=== PATIENT | female | born 1960 | race Caucasian/White ===

== ENCOUNTER 2025-06-27 22:25 | Inpatient (IN) | payer OTHER, SELFPAY ==
[2025-06-27] MEDS ORDERED: Nitroglycerin 2% Ointment 1 INCH/1 GM Packet ONE (22:38)
[2025-06-27] MEDS ORDERED: Acetaminophen 325 MG (10.15 ML) UDCUP ONE (23:10)
[2025-06-27] MEDS ORDERED: LevoFLOXacin 750 mg/D5W 150 ml Premix Bag ONE (23:12)
[2025-06-27] MEDS ORDERED: Cefepime 2 GM VIAL ONE (23:56)
[2025-06-28 08:57] VITALS: BMI 17.5
[2025-06-28] MEDS ORDERED: Melatonin 3 MG TAB PO PRN (09:21)
[2025-06-28] MEDS: Acetaminophen 325 MG TAB PO PRN (10:43)
[2025-06-28 10:57] LABS: Hematocrit 37.6 % (36.0-47.0); Hemoglobin 11.5 g/dL (12.0-16.0); Red Blood Cell (RBC) Count 4.56 mill/uL (4.20-5.40); White Blood Cell (WBC) Count 23.16 10x3/uL (4.8-10.8)
[2025-06-28 10:58] LABS: #Basophils 0.08 10x3/uL (0.0-0.2); #Eosinophils 0.34 10x3/uL (0.0-0.7); #Monocytes 1.12 10x3/uL (0.11-0.59); #Neutrophils 15.59 10x3/uL (1.40-6.50); %Basophils 0.3 % (0.0-1.0); %Eosinophils 1.5 % (0.0-10.0); %Lymphocytes 25.4 % (21.0-51.0); %Monocytes 4.8 % (0.0-10.0); %Neutrophils 67.4 % (42.0-75.0); Mean Corpuscular Hemoglobin 25.2 pg (27.0-31.0); Mean Corpuscular Volume 82.5 fL (78.0-98.0); Platelet Count 776 10x3/uL (130-400)
[2025-06-28 12:14] LABS: Magnesium 1.8 mg/dL (1.6-2.6)
[2025-06-28 13:11] LABS: ALT (SGPT) 8 U/L (Less than 34); AST (SGOT) 22 U/L (11-34); Albumin 3.9 g/dL (3.1-4.5); Alkaline Phosphatase 124 U/L (40-110); Anion Gap 20 mmol/L (10-20); BUN (Urea Nitrogen) 18 mg/dL (9.8-20.1); Bilirubin, Total 0.4 mg/dL (0.3-1.2); Calc. Creatinine Clearance 34 mL/min (70-130); Calcium 9.9 mg/dL (7.8-10.44); Carbon Dioxide 17 mmol/L (23-31); Chloride 109 mmol/L (98-107); Globulin 4.3 g/dL (2.4-3.5); Glucose 253 mg/dL (80-115); Potassium 3.3 mmol/L (3.5-5.1); Sodium 143 mmol/L (136-145)
[2025-06-28] MEDS: HYDROcodone/Acetaminophen 5/325 mg Tablet PO PRN (13:25)
[2025-06-28] MEDS: Vancomycin 1 GM in Premix 1 BAG IVPB SCH (14:43)
[2025-06-28] MEDS: Magnesium Sulfate/D5W 1 GM in Premix 1 BAG IVPB SCH (14:45)
[2025-06-28] MEDS ORDERED: hydrALAZINE 20 MG/ML VIAL SLOW IVP PRN (16:51)
[2025-06-28] MEDS: hydrALAZINE 20 MG/ML VIAL SLOW IVP PRN (17:15)
[2025-06-28] MEDS: Senokot 8.6 MG TAB PO SCH (20:01)
[2025-06-28] MEDS: Gabapentin 300 MG CAP PO SCH (20:02)
[2025-06-28] MEDS: QUEtiapine 25 MG TAB PO SCH (20:02)
[2025-06-28] MEDS: Mometasone 100 MCG/Formoterol 5 MCG 120 PUFF INHALER INH SCH (20:02)
[2025-06-28] MEDS: Sertraline 25 MG TAB PO SCH (20:02)
[2025-06-29 05:50] LABS: #Basophils 0.04 10x3/uL (0.0-0.2); #Eosinophils 0.51 10x3/uL (0.0-0.7); #Monocytes 0.61 10x3/uL (0.11-0.59); #Neutrophils 5.64 10x3/uL (1.40-6.50); %Basophils 0.5 % (0.0-1.0); %Eosinophils 5.9 % (0.0-10.0); %Lymphocytes 20.7 % (21.0-51.0); %Monocytes 7.1 % (0.0-10.0); %Neutrophils 65.6 % (42.0-75.0); Hematocrit 30.2 % (36.0-47.0); Hemoglobin 9.0 g/dL (12.0-16.0); Mean Corpuscular Hemoglobin 24.7 pg (27.0-31.0); Mean Corpuscular Volume 82.7 fL (78.0-98.0); Platelet Count 377 10x3/uL (130-400); Red Blood Cell (RBC) Count 3.65 mill/uL (4.20-5.40); White Blood Cell (WBC) Count 8.60 10x3/uL (4.8-10.8)
[2025-06-29 06:04] LABS: Vancomycin, Random 11.6 ug/mL (See Comment)
[2025-06-29 06:13] LABS: ALT (SGPT) Less than 7 U/L (Less than 34); AST (SGOT) 15 U/L (11-34); Albumin 3.0 g/dL (3.1-4.5); Alkaline Phosphatase 87 U/L (40-110); Anion Gap 12 mmol/L (10-20); BUN (Urea Nitrogen) 18 mg/dL (9.8-20.1); Bilirubin, Total 0.3 mg/dL (0.3-1.2); Calc. Creatinine Clearance 40 mL/min (70-130); Calcium 9.0 mg/dL (7.8-10.44); Carbon Dioxide 23 mmol/L (23-31); Chloride 111 mmol/L (98-107); Globulin 3.3 g/dL (2.4-3.5); Glucose 107 mg/dL (80-115); Potassium 3.7 mmol/L (3.5-5.1); Sodium 142 mmol/L (136-145)
[2025-06-29] MEDS: Pantoprazole 40 MG DR.TAB PO SCH (08:55)
[2025-06-29] MEDS: Aspirin 81 mg Enteric Coated Tablet PO SCH (08:55)
[2025-06-29] MEDS: Sodium Ferric Gluconate 250 MG in Sodium Chloride 0.9% 250 ML 250 ML IVPB SCH (09:44)
[2025-06-29] MEDS: Vancomycin 1 GM in Premix 1 BAG IVPB SCH (13:00)
[2025-06-30 04:55] LABS: #Basophils 0.03 10x3/uL (0.0-0.2); #Eosinophils 0.44 10x3/uL (0.0-0.7); #Monocytes 0.79 10x3/uL (0.11-0.59); #Neutrophils 8.08 10x3/uL (1.40-6.50); %Basophils 0.3 % (0.0-1.0); %Eosinophils 3.9 % (0.0-10.0); %Lymphocytes 16.1 % (21.0-51.0); %Monocytes 7.1 % (0.0-10.0); %Neutrophils 72.4 % (42.0-75.0); Hematocrit 29.5 % (36.0-47.0); Hemoglobin 9.0 g/dL (12.0-16.0); Mean Corpuscular Hemoglobin 25.0 pg (27.0-31.0); Mean Corpuscular Volume 81.9 fL (78.0-98.0); Platelet Count 327 10x3/uL (130-400); Red Blood Cell (RBC) Count 3.60 mill/uL (4.20-5.40); White Blood Cell (WBC) Count 11.16 10x3/uL (4.8-10.8)
[2025-06-30 05:23] LABS: ALT (SGPT) Less than 7 U/L (Less than 34); AST (SGOT) 10 U/L (11-34); Albumin 2.9 g/dL (3.1-4.5); Alkaline Phosphatase 87 U/L (40-110); Anion Gap 13 mmol/L (10-20); BUN (Urea Nitrogen) 18 mg/dL (9.8-20.1); Bilirubin, Total 0.2 mg/dL (0.3-1.2); Calc. Creatinine Clearance 33 mL/min (70-130); Calcium 8.6 mg/dL (7.8-10.44); Carbon Dioxide 21 mmol/L (23-31); Chloride 110 mmol/L (98-107); Globulin 3.0 g/dL (2.4-3.5); Glucose 86 mg/dL (80-115); Potassium 3.5 mmol/L (3.5-5.1); Sodium 140 mmol/L (136-145)
[2025-06-30] MEDS: NIFEdipine XL 30 MG ER.TAB PO SCH (12:28)
[2025-07-01 05:12] LABS: #Basophils 0.04 10x3/uL (0.0-0.2); #Eosinophils 0.50 10x3/uL (0.0-0.7); #Monocytes 0.63 10x3/uL (0.11-0.59); #Neutrophils 6.46 10x3/uL (1.40-6.50); %Basophils 0.4 % (0.0-1.0); %Eosinophils 5.5 % (0.0-10.0); %Lymphocytes 15.7 % (21.0-51.0); %Monocytes 6.9 % (0.0-10.0); %Neutrophils 71.3 % (42.0-75.0); Hematocrit 29.6 % (36.0-47.0); Hemoglobin 9.0 g/dL (12.0-16.0); Mean Corpuscular Hemoglobin 25.1 pg (27.0-31.0); Mean Corpuscular Volume 82.7 fL (78.0-98.0); Platelet Count 343 10x3/uL (130-400); Red Blood Cell (RBC) Count 3.58 mill/uL (4.20-5.40); White Blood Cell (WBC) Count 9.08 10x3/uL (4.8-10.8)
[2025-07-01 05:23] LABS: ALT (SGPT) Less than 7 U/L (Less than 34); AST (SGOT) 11 U/L (11-34); Albumin 2.9 g/dL (3.1-4.5); Alkaline Phosphatase 85 U/L (40-110); Anion Gap 11 mmol/L (10-20); BUN (Urea Nitrogen) 22 mg/dL (9.8-20.1); Bilirubin, Total 0.2 mg/dL (0.3-1.2); Calc. Creatinine Clearance 41 mL/min (70-130); Calcium 8.9 mg/dL (7.8-10.44); Carbon Dioxide 22 mmol/L (23-31); Chloride 111 mmol/L (98-107); Globulin 3.2 g/dL (2.4-3.5); Glucose 95 mg/dL (80-115); Potassium 3.9 mmol/L (3.5-5.1); Sodium 140 mmol/L (136-145)
[2025-07-01] MEDS: PNEUMOC 20-VAL CONJ-DIP CRM/PF 0.5 ML SYRINGE IM ONE (16:14)
[2025-07-01] MEDS: FLU (Fluarix Triv) 25-26 (6MOS UP)/PF 45 MCG/0.5 ML Syringe IM ONE (16:15)
[2025-07-01 17:06] VITALS: BP 147/87; TEMP 98.1
[2025-07-01] MEDS ORDERED: Amoxicillin/Potassium Clav 875 MG TAB PO SCH (21:00)
== END 2025-07-01 17:15 | disposition home or self-care (01) | DRG 205 ==
LOC: ERS 22:25 → INTOOBSV 06-28 04:07 → 2NO 06-28 04:07 → OBSVTOIN 06-29 15:59
PROVIDERS: ADMIT Family Medicine; ATTEND Family Medicine
PROC: 0BC18ZZ Extirpation of Matter from Trachea, Via Natural or Artificial Opening Endoscopic (ICD-10-PCS; principal; 2025-06-29)
DX: T17.990A Other foreign object in respiratory tract, part unspecified in causing asphyxiation, initial encounter (principal); A41.9 Sepsis, unspecified organism; J96.01 Acute respiratory failure with hypoxia; J18.9 Pneumonia, unspecified organism; I69.354 Hemiplegia and hemiparesis following cerebral infarction affecting left non-dominant side; R64 Cachexia; Z68.1 Body mass index [BMI] 19.9 or less, adult; J44.9 Chronic obstructive pulmonary disease, unspecified; I10 Essential (primary) hypertension; G62.9 Polyneuropathy, unspecified; F17.210 Nicotine dependence, cigarettes, uncomplicated; Y95 Nosocomial condition; E87.6 Hypokalemia; E03.9 Hypothyroidism, unspecified; D75.839 Thrombocytosis, unspecified; G43.909 Migraine, unspecified, not intractable, without status migrainosus; J04.10 Acute tracheitis without obstruction; I25.10 Atherosclerotic heart disease of native coronary artery without angina pectoris; Z95.5 Presence of coronary angioplasty implant and graft; Z85.21 Personal history of malignant neoplasm of larynx; Z90.02 Acquired absence of larynx; Z93.0 Tracheostomy status
CPT/HCPCS: 36415; 36416; 71045; 80053; 80202; 83605; 83735; 83880; 84145; 84439; 84443; 84484; 85025; 87040; 87081; 93005; 94640; 94664; 96365; 96375; G0378; J0360; J0692; J1956; J2250; J2916; J3010; J3373; J3475; J7050; J7120

== ENCOUNTER 2025-08-10 20:26 | Inpatient (IN) | payer SELFPAY ==
[~2025-08-10 20:26] MED LIST: Iopamidol 370 76% 100 ML VIAL ONE
[2025-08-10] MEDS ORDERED: Magnesium 2 GM/50 ML BAG (IN WATER) ONE (20:51)
[2025-08-10 21:13] LABS: #Basophils 0.03 10x3/uL (0.0-0.2); #Eosinophils 0.46 10x3/uL (0.0-0.7); #Monocytes 0.53 10x3/uL (0.11-0.59); #Neutrophils 11.35 10x3/uL (1.40-6.50); %Basophils 0.2 % (0.0-1.0); %Eosinophils 3.3 % (0.0-10.0); %Lymphocytes 10.6 % (21.0-51.0); %Monocytes 3.8 % (0.0-10.0); %Neutrophils 81.9 % (42.0-75.0); Hematocrit 38.6 % (36.0-47.0); Hemoglobin 11.5 g/dL (12.0-16.0); Mean Corpuscular Hemoglobin 25.7 pg (27.0-31.0); Mean Corpuscular Volume 86.4 fL (78.0-98.0); Platelet Count 442 10x3/uL (130-400); Red Blood Cell (RBC) Count 4.47 mill/uL (4.20-5.40); White Blood Cell (WBC) Count 13.87 10x3/uL (4.8-10.8)
[2025-08-10 21:21] LABS: Actual Bicarbonate (HCO3v) 25.2 mEq/L (22-28); Base Excess 0.3 mEq/L (-2.0 to +3.0); Calcium, Ionized (venous) 1.13 mmol/L (1.16-1.32); Chloride (VBG) 105 mmol/L (98-106); Hematocrit-VBG 36 % (36.0-47.0); Hemoglobin (Hb) 12.3 g/dL (11.7-16.0); Potassium (VBG) 3.71 mmol/L (3.70-5.30); Sodium 141 mmol/L (133-146)
[2025-08-10] MEDS ORDERED: Ipratropium Bromide 2.5 ml Neb ONE (21:37)
[2025-08-10 21:38] LABS: ALT (SGPT) Less than 7 U/L (Less than 34); AST (SGOT) 17 U/L (11-34); Albumin 3.5 g/dL (3.1-4.5); Alkaline Phosphatase 120 U/L (40-110); Anion Gap 18 mmol/L (10-20); BUN (Urea Nitrogen) 20 mg/dL (9.8-20.1); Bilirubin, Total 0.3 mg/dL (0.3-1.2); Calc. Creatinine Clearance 0 mL/min (70-130); Calcium 9.4 mg/dL (7.8-10.44); Carbon Dioxide 24 mmol/L (23-31); Chloride 106 mmol/L (98-107); Globulin 3.8 g/dL (2.4-3.5); Glucose 132 mg/dL (80-115); Potassium 4.7 mmol/L (3.5-5.1); Sodium 143 mmol/L (136-145)
[2025-08-10] MEDS ORDERED: Albuterol 2.5 MG (0.5 mL) NEB ONE (21:38)
[2025-08-10 22:25] LABS: Bacteria/HPF 1+ HPF (None Seen); CAUTI Indications for Culture Alt mental st,lethar; Glucose, Urine (Dipstick) Normal (Negative); Leukocyte Negative Leu/uL (Negative); Protein, Urine (Dipstick) 20 mg/dL (Neg-Trace); RBC/HPF 0-3 HPF (0-3); Specific Gravity, Urine 1.010 (1.002-1.036); WBC/HPF 0-3 HPF (0-3)
[2025-08-10 22:27] LABS: Urine Culture Reflex No No
[2025-08-10] MEDS ORDERED: Vancomycin 1 GM/200 ML (FROZEN) BAG ONE (22:33)
[2025-08-10] MEDS ORDERED: Electrolyte Replacement Protocol 1 EACH FS SCH (23:15)
[2025-08-10] MEDS ORDERED: Potassium Chloride 20 MEQ in Premix 1 BAG IVPB PRN (23:45)
[2025-08-10] MEDS ORDERED: PHOS-NAK 1 PKT PACK PO PRN (23:45)
[2025-08-10] MEDS ORDERED: Magnesium 2 GM/50 ML(in water) 2 GM in Premix 1 BAG IVPB PRN (23:45)
[2025-08-11 01:03] VITALS: BMI 18.1
[2025-08-11] MEDS: Acetaminophen 325 MG TAB PO PRN (01:17)
[2025-08-11] MEDS: Acetylcysteine 20% 200 MG/ML 30 ML VIAL INH SCH (01:23)
[2025-08-11] MEDS: cefTRIAXone\\ROCEPHIN 1 GM in Sodium Chloride 0.9% 100 ML IVPB SCH (01:24)
[2025-08-11] MEDS: QUEtiapine 25 MG TAB PO SCH ×2 (01:43→20:35)
[2025-08-11 06:56] LABS: #Basophils Less than 0.03 10x3/uL (0.0-0.2); #Eosinophils Less than 0.03 10x3/uL (0.0-0.7); #Monocytes 0.06 10x3/uL (0.11-0.59); #Neutrophils 12.71 10x3/uL (1.40-6.50); %Basophils 0.1 % (0.0-1.0); %Eosinophils 0.0 % (0.0-10.0); %Lymphocytes 4.4 % (21.0-51.0); %Monocytes 0.4 % (0.0-10.0); %Neutrophils 94.5 % (42.0-75.0); Hematocrit 34.1 % (36.0-47.0); Hemoglobin 10.1 g/dL (12.0-16.0); Mean Corpuscular Hemoglobin 25.2 pg (27.0-31.0); Mean Corpuscular Volume 85.0 fL (78.0-98.0); Platelet Count 368 10x3/uL (130-400); Red Blood Cell (RBC) Count 4.01 mill/uL (4.20-5.40); White Blood Cell (WBC) Count 13.46 10x3/uL (4.8-10.8)
[2025-08-11] MEDS: Mometasone 100 MCG/Formoterol 5 MCG 120 PUFF INHALER INH SCH (06:57)
[2025-08-11 07:17] LABS: ALT (SGPT) Less than 7 U/L (Less than 34); AST (SGOT) 8 U/L (11-34); Albumin 3.0 g/dL (3.1-4.5); Alkaline Phosphatase 98 U/L (40-110); Anion Gap 17 mmol/L (10-20); BUN (Urea Nitrogen) 19 mg/dL (9.8-20.1); Bilirubin, Total 0.2 mg/dL (0.3-1.2); Calc. Creatinine Clearance 46 mL/min (70-130); Calcium 9.4 mg/dL (7.8-10.44); Carbon Dioxide 21 mmol/L (23-31); Chloride 108 mmol/L (98-107); Globulin 3.4 g/dL (2.4-3.5); Glucose 155 mg/dL (80-115); Potassium 3.6 mmol/L (3.5-5.1); Sodium 142 mmol/L (136-145)
[2025-08-11] MEDS: NIFEdipine XL 30 MG ER.TAB PO SCH (08:51)
[2025-08-11] MEDS: Aspirin 81 mg Enteric Coated Tablet PO SCH (08:51)
[2025-08-11] MEDS: Gabapentin 300 MG CAP PO SCH (08:51)
[2025-08-11] MEDS: Pantoprazole 40 MG DR.TAB PO SCH (08:52)
[2025-08-11] MEDS: Calcium Carbonate 500 MG ChewTAB PO PRN (11:42)
[2025-08-11] MEDS: HYDROcodone/Acetaminophen 5/325 mg Tablet PO PRN (15:13)
[2025-08-11] MEDS: FLU (Fluarix Triv) 25-26 (6MOS UP)/PF 45 MCG/0.5 ML Syringe IM ONE (16:35)
[2025-08-11] MEDS: Sertraline 25 MG TAB PO SCH (20:36)
[2025-08-12 05:38] LABS: #Basophils Less than 0.03 10x3/uL (0.0-0.2); #Eosinophils Less than 0.03 10x3/uL (0.0-0.7); #Monocytes 0.34 10x3/uL (0.11-0.59); #Neutrophils 21.00 10x3/uL (1.40-6.50); %Basophils 0.1 % (0.0-1.0); %Eosinophils 0.0 % (0.0-10.0); %Lymphocytes 4.9 % (21.0-51.0); %Monocytes 1.5 % (0.0-10.0); %Neutrophils 92.9 % (42.0-75.0); Hematocrit 39.8 % (36.0-47.0); Hemoglobin 12.3 g/dL (12.0-16.0); Mean Corpuscular Hemoglobin 25.6 pg (27.0-31.0); Mean Corpuscular Volume 82.9 fL (78.0-98.0); Platelet Count 544 10x3/uL (130-400); Red Blood Cell (RBC) Count 4.80 mill/uL (4.20-5.40); White Blood Cell (WBC) Count 22.60 10x3/uL (4.8-10.8)
[2025-08-12 05:58] LABS: Anion Gap 14 mmol/L (10-20); BUN (Urea Nitrogen) 21 mg/dL (9.8-20.1); Calc. Creatinine Clearance 48 mL/min (70-130); Calcium 10.0 mg/dL (7.8-10.44); Carbon Dioxide 25 mmol/L (23-31); Chloride 108 mmol/L (98-107); Glucose 140 mg/dL (80-115); Potassium 4.7 mmol/L (3.5-5.1); Sodium 142 mmol/L (136-145)
[2025-08-12] MEDS: Ondansetron PF 4 MG/2 ML Vial IVP PRN (08:11)
[2025-08-13 04:33] LABS: #Basophils Less than 0.03 10x3/uL (0.0-0.2); #Eosinophils Less than 0.03 10x3/uL (0.0-0.7); #Monocytes 0.36 10x3/uL (0.11-0.59); #Neutrophils 11.87 10x3/uL (1.40-6.50); %Basophils 0.1 % (0.0-1.0); %Eosinophils 0.0 % (0.0-10.0); %Lymphocytes 6.3 % (21.0-51.0); %Monocytes 2.7 % (0.0-10.0); %Neutrophils 90.4 % (42.0-75.0); Hematocrit 32.8 % (36.0-47.0); Hemoglobin 10.2 g/dL (12.0-16.0); Mean Corpuscular Hemoglobin 25.8 pg (27.0-31.0); Mean Corpuscular Volume 82.8 fL (78.0-98.0); Platelet Count 449 10x3/uL (130-400); Red Blood Cell (RBC) Count 3.96 mill/uL (4.20-5.40); White Blood Cell (WBC) Count 13.14 10x3/uL (4.8-10.8)
[2025-08-13 04:54] LABS: Anion Gap 14 mmol/L (10-20); BUN (Urea Nitrogen) 26 mg/dL (9.8-20.1); Calc. Creatinine Clearance 45 mL/min (70-130); Calcium 9.0 mg/dL (7.8-10.44); Carbon Dioxide 25 mmol/L (23-31); Chloride 107 mmol/L (98-107); Glucose 142 mg/dL (80-115); Potassium 4.8 mmol/L (3.5-5.1); Sodium 141 mmol/L (136-145)
[2025-08-13 16:36] VITALS: BP 113/83; TEMP 97.9
== END 2025-08-13 16:30 | disposition home or self-care (01) | DRG 190 ==
LOC: ERS 20:26 → MSONC 23:10 → OBSVTOIN 08-11 10:07
PROVIDERS: ADMIT Student in an Organized Health Care Education/Training Program; ATTEND Family Medicine
DX: J44.1 Chronic obstructive pulmonary disease with (acute) exacerbation (principal); J18.9 Pneumonia, unspecified organism; N39.0 Urinary tract infection, site not specified; J44.0 Chronic obstructive pulmonary disease with (acute) lower respiratory infection; Z93.0 Tracheostomy status; Z95.5 Presence of coronary angioplasty implant and graft; Z88.1 Allergy status to other antibiotic agents; I10 Essential (primary) hypertension; B96.20 Unspecified Escherichia coli [E. coli] as the cause of diseases classified elsewhere; E03.9 Hypothyroidism, unspecified; Z86.73 Personal history of transient ischemic attack (TIA), and cerebral infarction without residual deficits; I25.10 Atherosclerotic heart disease of native coronary artery without angina pectoris
CPT/HCPCS: 36415; 71045; 71260; 80048; 80053; 81001; 82805; 83605; 83880; 84145; 84484; 85025; 87040; 87077; 87086; 87186; 87428; 93005; 94640; 94760; 96365; 96367; 96368; 96375; G0378; J0132; J0696; J2405; J2543; J2919; J3373; J3475; J7611; J7644; Q9967